=== PATIENT | female | born 1965 | race Caucasian/White ===

== ENCOUNTER 2020-11-23 16:50 | Emergency (ER) | payer MEDICARE, OTHER ==
[~2020-11-23 16:50] MED LIST: ATARAX25 MG PO; BASAGLAR K100 UNIT/1 SC; CETIRIZINE HCL10 MG PO; CLONAZEPAM1 MG PO; COREG6.25 MG PO; CREON DR 36,001 EACH PO; ESTRACE1 MG PO; ESZOPICLONE1 MG PO; FEOSOL45 MG PO; FLEXERIL10 MG PO; LEVEMIR100 UNIT/1 SQ; LINZESS290 MCG PO; LIPITOR40 MG PO; NEURONTIN300 MG PO; NOVOLIN R100 UNIT/2 SQ; PANTOPRAZOLE SO40 MG PO; PHENERGAN25 M1 PO; PRAVACHOL40 MG PO; RIZATRIPTAN10 M1 SL; SINGULAIR10 MG PO; SYNTHROID75 MCG PO; ULTRAM50 MG PO; VICODIN 10/3251 EACH PO
[2020-11-23 18:45] LABS: BASOPHIL 0.9 % (0-2); EOSINOPHIL 4.1 % (0-5); HCT 38.8 % (37.0-47.0); HGB 13.1 g/dl (12.5-16.0); LYMPHOCYTE 42.6 % (15-48); MCHC 33.8 g/dL (32.0-36.0); MCV 94.6 fL (78.0-100.0); MONOCYTE 6.8 % (0-12); MPV 12.6 fL (6.0-9.5); NEUTROPHIL 45.2 % (41-80); NRBC 0; PLT 284 K/uL (150-400); RDW 15.1 % (11.5-14.0)
[2020-11-23 18:47] LABS: WBC 11.1 K/uL (4.0-10.5)
[2020-11-23 19:03] LABS: ALBUMIN 2.9 g/dL (3.4-5.0); BILIRUBIN - TOTAL 0.3 mg/dL (0.2-1.0); BUN/CREAT RATIO (CALC) 42.9 RATIO; CREATININE 0.42 mg/dL (0.51-0.95); GLOBULIN (CALCULATION) 3.6 g/dL; POTASSIUM 4.3 mmol/L (3.5-5.1); TOTAL PROTEIN 6.5 g/dL (6.4-8.2)
[2020-11-23 19:30] LABS: BILIRUBIN NEGATIVE (NEGATIVE); BLOOD NEGATIVE Ery/uL (NEGATIVE); CLARITY CLEAR (CLEAR); COLOR YELLOW (YELLOW); GLUCOSE (U) 3+ mg/dL (NORMAL); LEUKOCYTES NEGATIVE Leu/uL (NEGATIVE); NITRITE NEGATIVE (NEGATIVE); PROTEIN NEGATIVE (NEGATIVE); SPECIFIC GRAVITY >=1.030 (1.001-1.030); UROBILINOGEN 0.2 mg/dL (0.2-1.0); pH 5.5 (5.0-9.0)
[2020-11-23] MEDS ORDERED: VANCOCIN HCL125 MG PO (19:51)
[2020-11-23] MEDS ORDERED: BENTYL10 MG PO (19:53)
[2021-04-04] MEDS ORDERED: NOVOLOG VI100 UNIT/1 SC (16:13)
[2021-04-04] MEDS ORDERED: LANTUS SOL100 UNIT/1 SC (16:13)
[2021-04-04] MEDS ORDERED: CLONAZEPAM0.5 MG PO (16:16)
[2021-04-04] MEDS ORDERED: VITAMIN D250 MC1 PO (16:18)
[2021-04-04] MEDS ORDERED: QUETIAPINE FUM300 MG PO (16:20)
== END 2020-11-23 20:10 | disposition home or self-care (01) ==
LOC: FER 16:50
PROVIDERS: Nurse Practitioner Family
DX: A04.72 Enterocolitis due to Clostridium difficile, not specified as recurrent (principal); I10 Essential (primary) hypertension; Z90.49 Acquired absence of other specified parts of digestive tract; Z98.890 Other specified postprocedural states
CPT/HCPCS: 36415; 80053; 81003; 85025; 99284; J3370; J7030

== ENCOUNTER → 2021-04-13 | Day surgery (SDC) | payer MEDICARE, OTHER ==
[~2021-04-13] VITALS: Ht 157.5 cm; Wt 68.1 kg
[~2021-04-13] MED LIST changes: +BENTYL10 MG PO; +CLONAZEPAM0.5 MG PO; +LANTUS SOL100 UNIT/1 SC; +NOVOLOG VI100 UNIT/1 SC; +QUETIAPINE FUM300 MG PO; +VANCOCIN HCL125 MG PO; +VITAMIN D250 MC1 PO
== END | disposition home or self-care (01) ==
LOC: FAS 08:00
DX: R97.0 Elevated carcinoembryonic antigen [CEA] (principal); K59.09 Other constipation; R10.11 Right upper quadrant pain; Z90.49 Acquired absence of other specified parts of digestive tract; K52.9 Noninfective gastroenteritis and colitis, unspecified; K21.9 Gastro-esophageal reflux disease without esophagitis; F41.9 Anxiety disorder, unspecified; J45.909 Unspecified asthma, uncomplicated; F32.9 Major depressive disorder, single episode, unspecified; I10 Essential (primary) hypertension; E78.5 Hyperlipidemia, unspecified; E03.9 Hypothyroidism, unspecified; E11.42 Type 2 diabetes mellitus with diabetic polyneuropathy; Z98.51 Tubal ligation status; F17.210 Nicotine dependence, cigarettes, uncomplicated; K76.0 Fatty (change of) liver, not elsewhere classified; Z90.410 Acquired total absence of pancreas
CPT/HCPCS: J2704; J7120

== ENCOUNTER 2021-08-31 13:23 | Inpatient (IN) | payer MEDICARE, OTHER ==
[~2021-08-31] VITALS: Ht 154.9 cm; Wt 63.7 kg
[2021-08-31 14:36] LABS: BASOPHIL 0.5 % (0-2); EOSINOPHIL 0.1 % (0-5); HCT 38.3 % (37.0-47.0); HGB 12.5 g/dl (12.5-16.0); LYMPHOCYTE 20.4 % (15-48); MCH 31.9 pg (25.0-31.0); MCHC 32.6 g/dL (32.0-36.0); MCV 97.7 fL (78.0-100.0); MONOCYTE 8.4 % (0-12); MPV 13.2 fL (6.0-9.5); NEUTROPHIL 69.9 % (41-80); NRBC 0; PLT 243 K/uL (150-400); RBC 3.92 M/uL (4.20-5.40); RDW 16.7 % (11.5-14.0); WBC 14.8 K/uL (4.0-10.5)
[2021-08-31 15:19] LABS: BUN/CREAT RATIO (CALC) 33.3 RATIO; CREATININE 0.78 mg/dL (0.51-0.95); POTASSIUM 4.1 mmol/L (3.5-5.1)
[2021-08-31 15:24] LABS: CORONAVIRUS 2019 SARS-COV-2 NEGATIVE (NEGATIVE); INFLUENZA A NAA NEGATIVE (NEGATIVE)
[2021-08-31 17:35] LABS: BILIRUBIN NEGATIVE (NEGATIVE); BLOOD NEGATIVE Ery/uL (NEGATIVE); CLARITY CLEAR (CLEAR); COLOR YELLOW (YELLOW); GLUCOSE (U) 3+ mg/dL (NORMAL); LEUKOCYTES NEGATIVE Leu/uL (NEGATIVE); NITRITE NEGATIVE (NEGATIVE); PROTEIN NEGATIVE (NEGATIVE); SPECIFIC GRAVITY 1.015 (1.001-1.030)
[2021-08-31 21:11] LABS: LACTIC ACID 3.6 mmol/L (0.4-1.9)
[2021-09-01 05:08] LABS: BASOPHIL 0.5 % (0-2); EOSINOPHIL 0.1 % (0-5); HCT 33.9 % (37.0-47.0); HGB 11.6 g/dl (12.5-16.0); LYMPHOCYTE 22.3 % (15-48); MCH 32.5 pg (25.0-31.0); MCHC 34.2 g/dL (32.0-36.0); MPV 13.1 fL (6.0-9.5); NEUTROPHIL 71.3 % (41-80); NRBC 0; PLT 243 K/uL (150-400); RBC 3.57 M/uL (4.20-5.40); RDW 15.8 % (11.5-14.0); WBC 21.8 K/uL (4.0-10.5)
[2021-09-01 05:55] LABS: BUN/CREAT RATIO (CALC) 30.4 RATIO; CREATININE 0.56 mg/dL (0.51-0.95); POTASSIUM 3.5 mmol/L (3.5-5.1)
[2021-09-01] MEDS ORDERED: PERCOCET 7.5/321 TAB PO (10:08)
[2021-09-01] MEDS ORDERED: TOPAMAX50 MG PO (10:10)
[2021-09-01] MEDS ORDERED: VENTOLIN HFA IN18 GM INH (10:10)
[2021-09-01] MEDS ORDERED: TOLTERODINE TART4 MG PO (10:11)
--- NOTE | 2021-09-01 18:48 | NUR ---
09/01/21 Ms. Flannery lives at home with her spouse. She reports to have been independent in the home and community prior to admission. - Ms. Flannery reports to experience depression and anxiety. She denies suicidal ideations, intentions, or attempts. Ms. Flannery is opposed to counseling / mental health services. She was educated to the benefits of behavioral health services. She was provided with crisis line and behavioral health services. - Please monitor for 02 needs.
[2021-09-01 20:18] LABS: B. PERTUSSIS DNA NOT DETECTED (NOT DETECT); CHLAMYDOPHILA PNEUMON DNA PCR NOT DETECTED (NOT DETECT); CORONAVIRUS 2019 PCR NOT DETECTED (NOT DETECTD); CORONAVIRUS 229E NOT DETECTED (NOT DETECT); CORONAVIRUS HKU1 NOT DETECTED (NOT DETECT); CORONAVIRUS NL63 NOT DETECTED (NOT DETECT); CORONAVIRUS OC43 NOT DETECTED (NOT DETECT); HUMAN METAPNEUMO NOT DETECTED (NOT DETECT); INFLUENZA A NOT DETECTED (NOT DETECT); INFLUENZA A 2009 H1N1 NOT DETECTED (NOT DETECT); INFLUENZA A H1 NOT DETECTED (NOT DETECT); INFLUENZA A H3 NOT DETECTED (NOT DETECT); INFLUENZA B NOT DETECTED (NOT DETECT); MYCOPLASMA PNEUMONIAE NOT DETECTED (NOT DETECT); PARAINFLUENZA 1 NOT DETECTED (NOT DETECT); PARAINFLUENZA 2 NOT DETECTED (NOT DETECT); PARAINFLUENZA 3 NOT DETETED (NOT DETECT); PARAINFLUENZA 4 NOT DETECTED (NOT DETECT); RESPIRATORY SYNCYTIAL VIRUS NOT DETECTED (NOT DETECT)
--- NOTE | 2021-09-02 06:29 | NUR ---
NOTIFIED GOLD CHARMER THAT PT HAS NOT VOIDED THE ENTIRE NIGHT OR DRANK ANYTHING. PT. HAS BEEN RESTING AND ON BIPAP FOR ABOUT HALF THE SHIFT. PT. DENIES HAVING TO USE THE RESTROOM. PENDING BLADDER SCAN PER GOLD CHARMER ORDER. ER,RN
[2021-09-02 09:30] LABS: HCT 34.7 % (37.0-47.0); HGB 11.5 g/dl (12.5-16.0); MCH 31.4 pg (25.0-31.0); MCHC 33.1 g/dL (32.0-36.0); MCV 94.8 fL (78.0-100.0); RBC 3.66 M/uL (4.20-5.40); RDW 15.9 % (11.5-14.0); WBC 21.6 K/uL (4.0-10.5)
[2021-09-02 09:48] LABS: BUN/CREAT RATIO (CALC) 20.7 RATIO; CREATININE 0.58 mg/dL (0.51-0.95); POTASSIUM 3.6 mmol/L (3.5-5.1)
[2021-09-02 20:33] LABS: RETICULOCYTE COUNT 2.6 % (1.0-2.0)
[2021-09-02 21:10] LABS: FOLIC ACID (SERUM) 13.4 ng/mL (8.6-58.9)
[2021-09-03 05:56] LABS: BASOPHIL 0.3 % (0-2); EOSINOPHIL 0.1 % (0-5); HCT 34.3 % (37.0-47.0); HGB 11.6 g/dl (12.5-16.0); LYMPHOCYTE 28.6 % (15-48); MCH 32.4 pg (25.0-31.0); MCHC 33.8 g/dL (32.0-36.0); MCV 95.8 fL (78.0-100.0); MONOCYTE 5.5 % (0-12); MPV 12.6 fL (6.0-9.5); NEUTROPHIL 64.2 % (41-80); NRBC 0; PLT 302 K/uL (150-400); RBC 3.58 M/uL (4.20-5.40); RDW 16.1 % (11.5-14.0)
[2021-09-03 06:06] LABS: WBC 18.9 K/uL (4.0-10.5)
[2021-09-03 06:19] LABS: BUN/CREAT RATIO (CALC) 21.8 RATIO; CREATININE 0.55 mg/dL (0.51-0.95); MAGNESIUM 1.9 mg/dL (1.8-2.4); POTASSIUM 3.6 mmol/L (3.5-5.1)
[2021-09-03 06:39] LABS: IRON % SATURATION 34.7 %SAT (20-50)
[2021-09-04 06:03] LABS: BASOPHIL 0.4 % (0-2); EOSINOPHIL 1.1 % (0-5); HCT 33.6 % (37.0-47.0); HGB 11.1 g/dl (12.5-16.0); LYMPHOCYTE 28.1 % (15-48); MCH 31.9 pg (25.0-31.0); MCV 96.6 fL (78.0-100.0); MONOCYTE 3.5 % (0-12); MPV 12.4 fL (6.0-9.5); NEUTROPHIL 65.2 % (41-80); NRBC 0; PLT 323 K/uL (150-400); RBC 3.48 M/uL (4.20-5.40)
[2021-09-04 06:07] LABS: WBC 19.6 K/uL (4.0-10.5)
[2021-09-04 06:33] LABS: CREATININE 0.55 mg/dL (0.51-0.95); MAGNESIUM 1.9 mg/dL (1.8-2.4); POTASSIUM 3.9 mmol/L (3.5-5.1)
[2021-09-06 05:41] LABS: BASOPHIL 0.4 % (0-2); EOSINOPHIL 0.7 % (0-5); HCT 32.9 % (37.0-47.0); HGB 10.8 g/dl (12.5-16.0); MCH 31.8 pg (25.0-31.0); MCHC 32.8 g/dL (32.0-36.0); MCV 96.8 fL (78.0-100.0); MONOCYTE 2.4 % (0-12); MPV 11.8 fL (6.0-9.5); NEUTROPHIL 78.1 % (41-80); NRBC 0; PLT 403 K/uL (150-400); RDW 15.6 % (11.5-14.0); WBC 13.6 K/uL (4.0-10.5)
[2021-09-06 06:07] LABS: BUN/CREAT RATIO (CALC) 21.4 RATIO; CREATININE 0.56 mg/dL (0.51-0.95); MAGNESIUM 1.8 mg/dL (1.8-2.4); POTASSIUM 4.3 mmol/L (3.5-5.1)
[2021-09-06] MEDS ORDERED: NEURONTIN100 MG PO ×2 (12:37→12:38)
--- NOTE | 2021-09-06 14:04 | NUR ---
PERCOCET AND KLONOPIN GIVEN TO PHARMACY TO LOCK UP WHILE PT IS ADMITTED.
[2021-09-07 05:50] LABS: HCT 33.2 % (37.0-47.0); MCHC 33.1 g/dL (32.0-36.0); MCV 96.5 fL (78.0-100.0); MPV 11.6 fL (6.0-9.5); RBC 3.44 M/uL (4.20-5.40); WBC 17.1 K/uL (4.0-10.5)
[2021-09-07 05:57] LABS: CREATININE 0.56 mg/dL (0.51-0.95); POTASSIUM 3.4 mmol/L (3.5-5.1)
[2021-09-07 10:36] LABS: BILIRUBIN NEGATIVE (NEGATIVE); BLOOD NEGATIVE Ery/uL (NEGATIVE); CLARITY CLEAR (CLEAR); COLOR YELLOW (YELLOW); GLUCOSE (U) NORMAL (NORMAL); LEUKOCYTES NEGATIVE Leu/uL (NEGATIVE); NITRITE NEGATIVE (NEGATIVE); PROTEIN NEGATIVE (NEGATIVE); SPECIFIC GRAVITY 1.015 (1.001-1.030); UROBILINOGEN 0.2 mg/dL (0.2-1.0)
[2021-09-07 14:26] LABS: BUN/CREAT RATIO (CALC) 21.7 RATIO; CREATININE 0.6 mg/dL (0.51-0.95); POTASSIUM 3.7 mmol/L (3.5-5.1)
[2021-09-07 16:10] LABS: ORGANISM ID Not indicated. (.); SPECIMEN SOURCE Urine (.)
--- NOTE | 2021-09-07 18:13 | NUR ---
PATIENT WANTS SON TO BE PERSON OF CONTACT IN EVENT OF EMERGENCY. STATED HE WOULD BE EASIER TO GET IN TOUCH WITH ON THE PHONE. ADMITTING WAS CALLED AND UPDATED FACESHEET. EMMANUEL ALMEIDA
[2021-09-08 06:01] LABS: BASOPHIL 0.3 % (0-2); EOSINOPHIL 5.9 % (0-5); HCT 30.8 % (37.0-47.0); HGB 9.9 g/dl (12.5-16.0); LYMPHOCYTE 21.3 % (15-48); MCH 31.7 pg (25.0-31.0); MCHC 32.1 g/dL (32.0-36.0); MCV 98.7 fL (78.0-100.0); MPV 11.6 fL (6.0-9.5); NEUTROPHIL 67.8 % (41-80); NRBC 0; PLT 460 K/uL (150-400); RBC 3.12 M/uL (4.20-5.40); RDW 14.9 % (11.5-14.0); WBC 14.5 K/uL (4.0-10.5)
[2021-09-08 06:21] LABS: ALBUMIN 1.7 g/dL (3.4-5.0); BILIRUBIN - TOTAL 0.6 mg/dL (0.2-1.0); BUN/CREAT RATIO (CALC) 19.6 RATIO; CREATININE 0.56 mg/dL (0.51-0.95); GLOBULIN (CALCULATION) 4.6 g/dL; TOTAL PROTEIN 6.3 g/dL (6.4-8.2)
[2021-09-08 10:44] LABS: LACTIC ACID 1.6 mmol/L (0.4-1.9)
[2021-09-08 14:11] LABS: STREPTOCOCCUS PNEUMONIAE AG Positive (Negative)
[2021-09-08 14:50] LABS: CREATININE 0.63 mg/dL (0.51-0.95); POTASSIUM 4.1 mmol/L (3.5-5.1)
[2021-09-09 06:17] LABS: BASOPHIL 0.4 % (0-2); EOSINOPHIL 3.8 % (0-5); HCT 34.5 % (37.0-47.0); HGB 11.1 g/dl (12.5-16.0); LYMPHOCYTE 17.8 % (15-48); MCH 31.8 pg (25.0-31.0); MCHC 32.2 g/dL (32.0-36.0); MCV 98.9 fL (78.0-100.0); MONOCYTE 3.8 % (0-12); MPV 11.6 fL (6.0-9.5); NEUTROPHIL 71.8 % (41-80); NRBC 0; PLT 510 K/uL (150-400); RBC 3.49 M/uL (4.20-5.40); RDW 14.6 % (11.5-14.0); WBC 17.1 K/uL (4.0-10.5)
[2021-09-09 06:48] LABS: BUN/CREAT RATIO (CALC) 25.9 RATIO; CREATININE 0.58 mg/dL (0.51-0.95)
[2021-09-09 14:40] LABS: BUN/CREAT RATIO (CALC) 26.3 RATIO; CREATININE 0.57 mg/dL (0.51-0.95); POTASSIUM 3.8 mmol/L (3.5-5.1)
[2021-09-10 04:03] LABS: BASOPHIL 0.5 % (0-2); HCT 32.6 % (37.0-47.0); HGB 10.6 g/dl (12.5-16.0); LYMPHOCYTE 24.3 % (15-48); MCH 31.5 pg (25.0-31.0); MCHC 32.5 g/dL (32.0-36.0); MCV 96.7 fL (78.0-100.0); MONOCYTE 4.8 % (0-12); MPV 11.1 fL (6.0-9.5); NRBC 0; PLT 541 K/uL (150-400); RBC 3.37 M/uL (4.20-5.40); RDW 14.1 % (11.5-14.0)
[2021-09-10 04:05] LABS: NEUTROPHIL 63.4 % (41-80)
[2021-09-10 04:20] LABS: BUN/CREAT RATIO (CALC) 25.9 RATIO; C-REACTIVE PROTEIN 3.7 mg/dL (<=0.90); CREATININE 0.58 mg/dL (0.51-0.95); POTASSIUM 3.4 mmol/L (3.5-5.1)
[2021-09-11 04:05] LABS: BASOPHIL 0.8 % (0-2); EOSINOPHIL 4.8 % (0-5); HCT 35.1 % (37.0-47.0); HGB 11.6 g/dl (12.5-16.0); LYMPHOCYTE 24.3 % (15-48); MCH 32.1 pg (25.0-31.0); MCV 97.2 fL (78.0-100.0); MONOCYTE 5.3 % (0-12); MPV 11.1 fL (6.0-9.5); NRBC 0; PLT 577 K/uL (150-400); RBC 3.61 M/uL (4.20-5.40); WBC 16.9 K/uL (4.0-10.5)
[2021-09-11 04:06] LABS: NEUTROPHIL 61.9 % (41-80)
[2021-09-11 04:24] LABS: BUN/CREAT RATIO (CALC) 26.7 RATIO; CREATININE 0.6 mg/dL (0.51-0.95); POTASSIUM 4.8 mmol/L (3.5-5.1)
[2021-09-11] MEDS ORDERED: FLORANEX TABLE1 EACH PO (07:57)
[2021-09-11] MEDS ORDERED: MUCINEX 600MG600 MG PO (07:57)
--- NOTE | 2021-09-11 11:25 | NUR ---
PATIENT DISCHARGED VIA WHEELCHAIR. VERBALIZED UNDERSTANDING OF DISCHARGE INSTRUCTIONS. wILL CALL FOR APPOINTMENT WITH [facility] TOMORROW FOR FOLLOWUP APPT. MIDLINE AND MONITOR DCD
== END 2021-09-11 11:40 | disposition home or self-care (01) | DRG 871 ==
LOC: FER 13:23 → FTCU 17:41 → FICU 17:41
PROVIDERS: Family Medicine; Internal Medicine; Nurse Practitioner Acute Care; Nurse Practitioner Family; ADMIT Internal Medicine
PROC: 05HY33Z Insertion of Infusion Device into Upper Vein, Percutaneous Approach (ICD-10-PCS; principal; 2021-09-03)
DX: A41.9 Sepsis, unspecified organism (principal); J96.01 Acute respiratory failure with hypoxia; J18.9 Pneumonia, unspecified organism; G93.41 Metabolic encephalopathy; E43 Unspecified severe protein-calorie malnutrition; E87.2 Acidosis; D64.9 Anemia, unspecified; R65.20 Severe sepsis without septic shock; Z20.822 Contact with and (suspected) exposure to COVID-19; E11.40 Type 2 diabetes mellitus with diabetic neuropathy, unspecified; I10 Essential (primary) hypertension; G89.4 Chronic pain syndrome; M54.59 Other low back pain; J45.909 Unspecified asthma, uncomplicated; E03.9 Hypothyroidism, unspecified; E78.5 Hyperlipidemia, unspecified; F17.210 Nicotine dependence, cigarettes, uncomplicated; E11.65 Type 2 diabetes mellitus with hyperglycemia; F41.9 Anxiety disorder, unspecified; K76.0 Fatty (change of) liver, not elsewhere classified; Z90.49 Acquired absence of other specified parts of digestive tract; Z98.890 Other specified postprocedural states; Z90.710 Acquired absence of both cervix and uterus; Z82.49 Family history of ischemic heart disease and other diseases of the circulatory system; Z88.6 Allergy status to analgesic agent; Z88.8 Allergy status to other drugs, medicaments and biological substances; Z91.040 Latex allergy status
CPT/HCPCS: 36415; 36600; 71045; 71275; 80048; 80053; 80202; 81003; 82607; 82746; 82803; 82962; 83036; 83540; 83550; 83605; 83735; 83880; 84145; 84484; 85025; 86140; 87040; 87070; 87205; 87449; 93005; 94010; 94640; 94660; 94667; 94668; 94762; 97110; 97162; 97166; 97530; 97530-GP; 97535; J0456; J0696; J1642; J1650; J1815; J1956; J2060; J2543; J2550; J2920; J3360; J3370; J7030; J7050; J8540; Q9967; U0002

== ENCOUNTER 2021-12-01 22:48 | Inpatient (IN) | payer MEDICARE, OTHER ==
[~2021-12-01] VITALS: Ht 157.5 cm; Wt 64.9 kg
[~2021-12-01 22:48] MED LIST changes: +FLORANEX TABLE1 EACH PO; +MUCINEX 600MG600 MG PO; +NEURONTIN100 MG PO; +PERCOCET 7.5/321 TAB PO; +TOLTERODINE TART4 MG PO; +TOPAMAX50 MG PO; +VENTOLIN HFA IN18 GM INH
[2021-12-01 23:39] LABS: HCT 39.7 % (37.0-47.0); HGB 13.3 g/dl (12.5-16.0); MCH 31.5 pg (25.0-31.0); MCHC 33.5 g/dL (32.0-36.0); MCV 94.1 fL (78.0-100.0); MPV 12.9 fL (6.0-9.5); NRBC 0; PLT 397 K/uL (150-400); RBC 4.22 M/uL (4.20-5.40); RDW 15.9 % (11.5-14.0); WBC 21.1 K/uL (4.0-10.5)
[2021-12-02 00:10] LABS: BILIRUBIN - TOTAL 0.8 mg/dL (0.2-1.0); BUN/CREAT RATIO (CALC) 37.6 RATIO; CREATININE 1.17 mg/dL (0.51-0.95); GLOBULIN (CALCULATION) 4.2 g/dL; POTASSIUM 6.4 mmol/L (3.5-5.1); TOTAL PROTEIN 7.2 g/dL (6.4-8.2)
[2021-12-02 00:17] LABS: BAND 13 % (0-10); EOSINOPHIL(M) 3 % (0-5); LYMPHOCYTE(M) 7 % (15-48); MONOCYTE(M) 1 % (0-12); NEUTROPHILS(M) 76 % (41-80); PLATELETS ON SMEAR ADEQUATE
[2021-12-02 00:18] LABS: VACUOLES PRESENT
[2021-12-02 02:49] LABS: BUN/CREAT RATIO (CALC) 44.1 RATIO; CREATININE 0.93 mg/dL (0.51-0.95)
[2021-12-02 02:52] LABS: POTASSIUM 4.9 mmol/L (3.5-5.1)
[2021-12-02 04:42] LABS: BUN/CREAT RATIO (CALC) 46.5 RATIO; CREATININE 0.86 mg/dL (0.51-0.95); POTASSIUM 4.9 mmol/L (3.5-5.1)
[2021-12-02 04:48] LABS: CORONAVIRUS 2019 SARS-COV-2 NEGATIVE (NEGATIVE); INFLUENZA A NAA NEGATIVE (NEGATIVE)
[2021-12-02 07:52] LABS: BUN/CREAT RATIO (CALC) 49.4 RATIO; CREATININE 0.79 mg/dL (0.51-0.95); POTASSIUM 4.7 mmol/L (3.5-5.1)
[2021-12-02 08:14] LABS: BILIRUBIN 1+ mg/dL (NEGATIVE); BLOOD TRACE-INTACT Ery/uL (NEGATIVE); CLARITY CLEAR (CLEAR); COLOR YELLOW (YELLOW); GLUCOSE (U) 3+ mg/dL (NORMAL); LEUKOCYTES NEGATIVE Leu/uL (NEGATIVE); NITRITE NEGATIVE (NEGATIVE); PROTEIN NEGATIVE (NEGATIVE); SPECIFIC GRAVITY 1.015 (1.001-1.030); UROBILINOGEN 0.2 mg/dL (0.2-1.0)
[2021-12-02 08:33] LABS: AMPHETAMINES NEGATIVE (NEGATIVE); BARBITURATES NEGATIVE (NEGATIVE); ECSTASY (MDMA) NEGATIVE (NEGATIVE); MARIJUANA (THC) NEGATIVE (NEGATIVE); METHADONE NEGATIVE (NEGATIVE); OPIATES NEGATIVE (NEGATIVE); OXYCODONE NEGATIVE (NEGATIVE)
[2021-12-02 08:50] LABS: BACTERIA TRACE
[2021-12-02 10:40] LABS: INR 1.44 (0.9-1.2); PROTHROMBIN TIME 16.8 SECONDS (11.8-13.4)
[2021-12-02 10:53] LABS: LACTIC ACID 1.7 mmol/L (0.4-1.9)
[2021-12-02 10:59] LABS: BUN/CREAT RATIO (CALC) 53.5 RATIO; CREATININE 0.71 mg/dL (0.51-0.95); LIPASE 15 U/L (73-393); POTASSIUM 4.5 mmol/L (3.5-5.1)
[2021-12-02 11:00] LABS: C-REACTIVE PROTEIN < 0.20 mg/dL (<=0.90)
[2021-12-02 14:32] LABS: BUN/CREAT RATIO (CALC) 52.3 RATIO; CREATININE 0.65 mg/dL (0.51-0.95)
[2021-12-03 05:00] LABS: BASOPHIL 0.5 % (0-2); EOSINOPHIL 1.4 % (0-5); HCT 30.3 % (37.0-47.0); HGB 10.5 g/dl (12.5-16.0); LYMPHOCYTE 31.6 % (15-48); MCH 31.1 pg (25.0-31.0); MCHC 34.7 g/dL (32.0-36.0); MONOCYTE 4.9 % (0-12); MPV 11.3 fL (6.0-9.5); NEUTROPHIL 61.4 % (41-80); NRBC 0; PLT 279 K/uL (150-400); RBC 3.38 M/uL (4.20-5.40); RDW 14.8 % (11.5-14.0); WBC 9.2 K/uL (4.0-10.5)
[2021-12-03 05:01] LABS: MCV 89.6 fL (78.0-100.0)
[2021-12-03 05:42] LABS: INR 1.31 (0.9-1.2); PROTHROMBIN TIME 15.6 SECONDS (11.8-13.4)
[2021-12-03 05:55] LABS: ALBUMIN 2.1 g/dL (3.4-5.0); ALKALINE PHOSHATASE 129 U/L (46-116); ALT 95 U/L (14-59); AST 120 U/L (15-37); BILIRUBIN - TOTAL 0.5 mg/dL (0.2-1.0); BUN 25 mg/dL (7-18); BUN/CREAT RATIO (CALC) 42.4 RATIO; CHLORIDE 103 mmol/L (98-107); CO2 (BICARBONATE) 33 mmol/L (21-32); CPK 389 U/L (26-192); CREATININE 0.59 mg/dL (0.51-0.95); GLOBULIN (CALCULATION) 3.2 g/dL; GLUCOSE 101 mg/dL (74-106); POTASSIUM 3.5 mmol/L (3.5-5.1); TOTAL PROTEIN 5.3 g/dL (6.4-8.2)
[2021-12-03 05:56] LABS: C-REACTIVE PROTEIN <0.20 mg/dL (<=0.90)
== END 2021-12-03 10:30 | disposition home or self-care (01) | DRG 637 ==
LOC: FER 22:48 → FICU 12-02 04:00
PROVIDERS: Family Medicine; Hospitalist; Internal Medicine; ADMIT Internal Medicine
DX: E11.10 Type 2 diabetes mellitus with ketoacidosis without coma (principal); R65.11 Systemic inflammatory response syndrome (SIRS) of non-infectious origin with acute organ dysfunction; G93.41 Metabolic encephalopathy; J96.01 Acute respiratory failure with hypoxia; N17.9 Acute kidney failure, unspecified; M62.82 Rhabdomyolysis; E87.1 Hypo-osmolality and hyponatremia; E86.0 Dehydration; E87.5 Hyperkalemia; Z20.822 Contact with and (suspected) exposure to COVID-19; Z28.310 Unvaccinated for COVID-19; K76.0 Fatty (change of) liver, not elsewhere classified; J44.9 Chronic obstructive pulmonary disease, unspecified; F17.200 Nicotine dependence, unspecified, uncomplicated; E11.40 Type 2 diabetes mellitus with diabetic neuropathy, unspecified; E03.9 Hypothyroidism, unspecified; M54.9 Dorsalgia, unspecified; I10 Essential (primary) hypertension; G89.29 Other chronic pain; Z90.49 Acquired absence of other specified parts of digestive tract; Z90.411 Acquired partial absence of pancreas; Z90.710 Acquired absence of both cervix and uterus; Z79.4 Long term (current) use of insulin; Z88.8 Allergy status to other drugs, medicaments and biological substances; Z91.040 Latex allergy status; Z79.899 Other long term (current) drug therapy; Z90.81 Acquired absence of spleen
CPT/HCPCS: 36415; 36600; 71045; 71250; 80048; 80053; 80076; 80305; 81001; 82550; 82803; 82962; 83036; 83605; 83690; 83735; 83880; 84145; 84484; 85025; 85610; 86140; 87040; 93005; 94010; 94640; 96365; 96375; 96376; C9113; J0692; J1650; J1815; J2270; J2405; J2543; J2550; J3370; J3480; J7030; J7040; J7050; U0002